=== PATIENT | female | born 1950 | race Caucasian/White ===

== ENCOUNTER 2024-07-02 09:07 | Inpatient (IN) | payer OTHER, BC ==
[2024-07-02 10:03] LABS: ABSOLUTE IMMATURE GRANULOCYTES 0.04 x10^3/uL (0.0-0.031); BASOPHILS # 0.02 x10^3/uL (0.01-0.08); EOSINOPHIL % 1.4 % (0.7-5.8); EOSINOPHILS # 0.11 x10^3/uL (0.04-0.36); HEMATOCRIT 32.5 % (34.1-44.9); HEMOGLOBIN 10.6 g/dL (11.2-15.7); MCHC 32.6 g/dl (32.2-35.5); MEAN CELL VOLUME 88.6 fl (79.4-94.8); MEAN PLT VOLUME 9.6 fl (9.4-12.3); MONOCYTE # 0.54 x10^3/uL (0.24-0.86); MONOCYTE % 6.8 % (4.7-12.5); PLATELET COUNT 213 x10^3/uL (182-369); RDW 13.2 % (12.4-16.6)
[2024-07-02 10:05] LABS: VENOUS BASE EXCESS -1.4 mmol/L (-2-2); VENOUS O2 SATURATION 65.5 % (70-80); VENOUS PCO2 37.1 mmHg (38-52); VENOUS PH 7.409 (7.310-7.410)
[2024-07-02 10:10] LABS: INR 0.99 (0.83-1.09); PROTHROMBIN TIME (PATIENT) 10.8 SEC (9.7-13.0)
[2024-07-02 10:34] LABS: POTASSIUM 4.2 mmol/L (3.5-5.1)
[2024-07-02 10:37] LABS: BLOOD UREA NITROGEN 11.8 mg/dL (7-18)
[2024-07-02 10:39] LABS: ALBUMIN 3.3 g/dl (3.4-5.0); CREATININE 0.8 mg/dL (0.55-1.3)
[2024-07-02 10:41] LABS: BILIRUBIN,TOTAL 0.9 mg/dL (0.2-1)
[2024-07-02 10:45] LABS: N-TERMINAL BNP 1625.1 pg/ml (5-125)
[2024-07-02] MEDS ORDERED: HEPARIN INFUSION - 500 ML IVPB SCH (11:00)
[2024-07-02] MEDS ORDERED: HEPARIN NA (PORCINE) 5,000 UNITS/ML 1ML VIAL ONE (11:33)
[2024-07-02] MEDS: HEPARIN NA (PORCINE) 5,000 UNITS/ML 1ML VIAL IVPUSH ONE (11:37)
[2024-07-02] MEDS ORDERED: HEPARIN NA (PORCINE) 5,000 UNITS/ML 1ML VIAL IVPUSH PRN ×2 (11:51)
[2024-07-02] MEDS: HEPARIN SOD,PORK IN 0.45% NACL 25,000 UNITS/500 ML INFUS.BAG IVPB SCH (12:41)
[2024-07-02] MEDS: ENOXAPARIN NA (PORCINE) 80 MG/0.8 ML DISP.SYRIN SQ ONE (14:58)
[2024-07-02] MEDS ORDERED: ENOXAPARIN NA (PORCINE) 60 MG/0.6 ML DISP.SYRIN SQ SCH ×2 (15:00→22:00)
[2024-07-02] MEDS: PANTOPRAZOLE 40 MG TABLET PO ONE (15:50)
[2024-07-02] MEDS ORDERED: PANTOPRAZOLE 40 MG TABLET PO ONE (15:51)
[2024-07-02] MEDS ORDERED: traMADol HCL 50 MG TABLET PO PRN (16:33)
[2024-07-02 17:26] VITALS: BMI 27.8
[2024-07-02] MEDS: metoPROLOL SUCCINATE 25 MG TAB.SR.24H (FP) PO SCH (19:12)
[2024-07-02] MEDS: CEFTRIAXONE 1 G/50 ML PREMIX 50 ML IVPB SCH (19:13)
[2024-07-02] MEDS: APIXABAN 5 MG TABLET PO SCH (19:13)
[2024-07-02] MEDS ORDERED: ATORVASTATIN CA 80 MG TABLET (FP) PO SCH (22:00)
[2024-07-02] MEDS: ATORVASTATIN CA 40 MG TABLET (FP) PO SCH (23:06)
[2024-07-03] MEDS: ACETAMINOPHEN 500 MG TABLET (FP) PO PRN (00:27)
[2024-07-03] MEDS: LEVOTHYROXINE NA 50 MCG TABLET (FP) PO SCH (06:13)
[2024-07-03 07:14] LABS: HEMOGLOBIN 9.7 g/dL (11.2-15.7); MCHC 32.3 g/dl (32.2-35.5); MEAN PLT VOLUME 10.3 fl (9.4-12.3); PLATELET COUNT 208 x10^3/uL (182-369); RDW 12.8 % (12.4-16.6)
[2024-07-03 07:39] LABS: POTASSIUM 4.1 mmol/L (3.5-5.1)
[2024-07-03 07:48] LABS: BLOOD UREA NITROGEN 12.8 mg/dL (7-18); CALCIUM 8.6 mg/dL (8.5-10.1); MAGNESIUM 1.8 mg/dL (1.8-2.4)
[2024-07-03 07:51] LABS: CREATININE 0.7 mg/dL (0.55-1.3)
[2024-07-03 07:52] LABS: PHOSPHOROUS 4.1 mg/dL (2.5-4.9)
[2024-07-03] MEDS: PANTOPRAZOLE 40 MG TABLET PO SCH (09:06)
[2024-07-03] MEDS: SENNOSIDES 8.6MG TABLET (FP) PO ONE (15:30)
[2024-07-03] MEDS: POLYETHYLENE GLYCOL (HEALTHYLAX) 3350 17 GM PACKET PO ONE (15:31)
[2024-07-03] MEDS: SENNOSIDES 8.6MG TABLET (FP) PO SCH (21:10)
[2024-07-03] MEDS: POLYETHYLENE GLYCOL (HEALTHYLAX) 3350 17 GM PACKET PO SCH (21:11)
[2024-07-03] MEDS: ATORVASTATIN CA 40 MG TABLET (FP) PO SCH (21:11)
[2024-07-03] MEDS ORDERED: SENNOSIDES 8.6MG TABLET (FP) PO SCH (22:00)
[2024-07-04 02:48] VITALS: RESP 18
[2024-07-04 07:07] VITALS: TEMP 98.8
[2024-07-04 08:08] LABS: POTASSIUM 4.5 mmol/L (3.5-5.1)
[2024-07-04 08:30] LABS: CALCIUM 8.5 mg/dL (8.5-10.1)
[2024-07-04 08:31] LABS: ALBUMIN 3.3 g/dl (3.4-5.0); BLOOD UREA NITROGEN 8.3 mg/dL (7-18)
[2024-07-04 08:34] LABS: CREATININE 0.7 mg/dL (0.55-1.3)
[2024-07-04 08:35] LABS: TOT PROT 6.6 g/dl (6.4-8.2)
[2024-07-04 09:10] VITALS: BP 142/77; PULSE 103
[2024-07-04 09:48] LABS: HEMATOCRIT 30.7 % (34.1-44.9); HEMOGLOBIN 9.9 g/dL (11.2-15.7); MCHC 32.2 g/dl (32.2-35.5); MEAN CELL VOLUME 88.5 fl (79.4-94.8); MEAN PLT VOLUME 10.3 fl (9.4-12.3); PLATELET COUNT 228 x10^3/uL (182-369)
[2024-07-09] MEDS ORDERED: APIXABAN 5 MG TABLET PO SCH (10:00)
== END 2024-07-04 12:28 | disposition home or self-care (01) | DRG 314 ==
LOC: JER 09:07 → JERBED 13:20 → J4W 16:43
PROVIDERS: ADMIT Internal Medicine; ATTEND Internal Medicine
DX: I97.89 Other postprocedural complications and disorders of the circulatory system, not elsewhere classified (principal); I26.99 Other pulmonary embolism without acute cor pulmonale; I24.89 Other forms of acute ischemic heart disease; I50.30 Unspecified diastolic (congestive) heart failure; Y83.8 Other surgical procedures as the cause of abnormal reaction of the patient, or of later complication, without mention of misadventure at the time of the procedure; E03.9 Hypothyroidism, unspecified; K76.9 Liver disease, unspecified; K21.9 Gastro-esophageal reflux disease without esophagitis; M81.0 Age-related osteoporosis without current pathological fracture; E78.5 Hyperlipidemia, unspecified; R00.0 Tachycardia, unspecified; K44.9 Diaphragmatic hernia without obstruction or gangrene
CPT/HCPCS: 0241U-QW; 36415; 71045-TC-FY; 71275-TC; 74177-TC; 80048; 80053; 80061; 82803; 83036; 83690; 83735; 83880; 84100; 84436; 84439; 84443; 84484; 85025; 85027; 85610; 85730; 86850; 86900; 86901; 87040; 87086; 93005; 93010; 93306-TC; 93970-TC; 94761; 97116-GP; 97163-GP; 99291; J1644; Q9967

== ENCOUNTER 2024-07-29 10:14 | Inpatient (IN) | payer OTHER, BC ==
[2024-07-29] MEDS ORDERED: ACETAMINOPHEN 325 MG TABLET (FP) ONE (10:47)
[2024-07-29 11:11] LABS: ABSOLUTE IMMATURE GRANULOCYTES 0.02 x10^3/uL (0.0-0.031); BASOPHILS # 0.04 x10^3/uL (0.01-0.08); EOSINOPHIL % 7.8 % (0.7-5.8); HEMATOCRIT 32.1 % (34.1-44.9); HEMOGLOBIN 10.6 g/dL (11.2-15.7); MEAN PLT VOLUME 10.8 fl (9.4-12.3); MONOCYTE # 0.42 x10^3/uL (0.24-0.86); MONOCYTE % 6.5 % (4.7-12.5); PLATELET COUNT 152 x10^3/uL (182-369); RDW 13.2 % (12.4-16.6)
[2024-07-29] MEDS: ACETAMINOPHEN 325 MG TABLET (FP) PO ONE ×2 (11:15→18:22)
[2024-07-29 11:19] LABS: INR 1.61 (0.83-1.09); PROTHROMBIN TIME (PATIENT) 17.6 SEC (9.7-13.0)
[2024-07-29 11:22] LABS: ACTIVATED PTT 39.6 SECONDS (25.2-36.5)
[2024-07-29 11:28] LABS: EPI CELLS 8 /uL (0-25.1); HYALINE CASTS 0 /uL (0-3.1); PH,URINE 6.5 (5.0-8.0); URINE APPEARANCE CLEAR; URINE BACTERIA 38 /uL (0-1359); URINE BILIRUBIN 1+ (NEGATIVE); URINE COLOR DK YELLOW; URINE GLUCOSE (UA) NEGATIVE (NEGATIVE); URINE KETONE NEGATIVE (NEGATIVE); URINE LEUK ESTERASE 2+ (NEGATIVE); URINE NITRITE NEGATIVE (NEGATIVE); URINE PROTEIN TRACE (NEGATIVE); URINE RBC 29 /uL (0-23.9); URINE WBC 138 /uL (0-25.8)
[2024-07-29 11:33] LABS: POTASSIUM 4.4 mmol/L (3.5-5.1)
[2024-07-29 11:36] LABS: ALBUMIN 3.2 g/dl (3.4-5.0); BLOOD UREA NITROGEN 10.6 mg/dL (7-18); CALCIUM 8.9 mg/dL (8.5-10.1); MAGNESIUM 1.7 mg/dL (1.8-2.4)
[2024-07-29 11:40] LABS: BILIRUBIN,TOTAL 3.1 mg/dL (0.2-1); CREATININE 0.8 mg/dL (0.55-1.3)
[2024-07-29 11:42] LABS: TOT PROT 6.7 g/dl (6.4-8.2)
[2024-07-29] MEDS ORDERED: CEFTRIAXONE 1 G/50 ML PREMIX 50 ML IVPB ONE (13:27)
[2024-07-29] MEDS: CEFTRIAXONE 1 GM in DEXTROSE 5%-WATER - 50 ML IVPB ONE (13:30)
[2024-07-29 15:17] VITALS: BMI 25.6
[2024-07-29] MEDS: DEXTROSE 5%-NORMAL SALINE 1,000 ML IV SCH (15:31)
[2024-07-29] MEDS: APIXABAN 5 MG TABLET PO SCH (21:37)
[2024-07-29] MEDS: BUDESONIDE/FORMETEROL FUMARATE 80/4.5 mcg INHALER IH SCH (21:37)
[2024-07-29] MEDS: metoPROLOL SUCCINATE 25 MG TAB.SR.24H (FP) PO ONE (22:56)
[2024-07-30] MEDS: ACETAMINOPHEN 325 MG TABLET (FP) PO ONE (01:50)
[2024-07-30] MEDS: LEVOTHYROXINE NA 50 MCG TABLET (FP) PO SCH (06:20)
[2024-07-30 08:37] LABS: ABSOLUTE IMMATURE GRANULOCYTES 0.02 x10^3/uL (0.0-0.031); BASOPHILS # 0.03 x10^3/uL (0.01-0.08); EOSINOPHIL % 15.2 % (0.7-5.8); EOSINOPHILS # 0.68 x10^3/uL (0.04-0.36); HEMATOCRIT 29.3 % (34.1-44.9); HEMOGLOBIN 9.5 g/dL (11.2-15.7); MCHC 32.4 g/dl (32.2-35.5); MEAN CELL VOLUME 88.5 fl (79.4-94.8); MEAN PLT VOLUME 11.2 fl (9.4-12.3); MONOCYTE # 0.52 x10^3/uL (0.24-0.86); MONOCYTE % 11.6 % (4.7-12.5); PLATELET COUNT 155 x10^3/uL (182-369); RDW 13.2 % (12.4-16.6)
[2024-07-30 08:38] LABS: INR 1.36 (0.83-1.09)
[2024-07-30] MEDS ORDERED: INDOMETHACIN 50 MG RECTAL SUPPOSITORY PR ONE (08:46)
[2024-07-30 08:51] LABS: POTASSIUM 4.1 mmol/L (3.5-5.1)
[2024-07-30 08:56] LABS: ALBUMIN 2.9 g/dl (3.4-5.0); CALCIUM 8.7 mg/dL (8.5-10.1); PHOSPHOROUS 2.1 mg/dL (2.5-4.9)
[2024-07-30 08:57] LABS: BILIRUBIN,TOTAL 2.4 mg/dL (0.2-1); BLOOD UREA NITROGEN 9.6 mg/dL (7-18)
[2024-07-30 09:01] LABS: CREATININE 0.7 mg/dL (0.55-1.3)
[2024-07-30] MEDS ORDERED: metoPROLOL SUCCINATE 25 MG TAB.SR.24H (FP) PO SCH (10:00)
[2024-07-30] MEDS ORDERED: PIPERACILLIN/TAZOB 3.375 GM 3.375 GM in DEXTROSE 5%-WATER - 50 ML IVPB ONE (10:00)
[2024-07-30] MEDS: busPIRone HCL 10 MG TABLET (FP) PO SCH (10:27)
[2024-07-30] MEDS: CEFTRIAXONE 1 G/50 ML PREMIX 50 ML IVPB SCH (10:27)
[2024-07-30] MEDS: NAPH,MB-DB/K PH,MBDB POWDER PACKET PO SCH (12:29)
[2024-07-30 13:11] LABS: BILIRUBIN,DIRECT 1.7 mg/dL (0.0-0.2)
[2024-07-30] MEDS ORDERED: HEPARIN NA (PORCINE) 5,000 UNITS/ML 1ML VIAL IVPUSH PRN ×2 (13:37)
[2024-07-30] MEDS: HEPARIN - 25,000 UNIT in SODIUM CHLORIDE 495 ML IV SCH (15:06)
[2024-07-30] MEDS: metoPROLOL SUCCINATE 25 MG TAB.SR.24H (FP) PO SCH (21:33)
[2024-07-30] MEDS: ATORVASTATIN CA 80 MG TABLET (FP) PO SCH (21:33)
[2024-07-30] MEDS ORDERED: APIXABAN 5 MG TABLET PO SCH (22:00)
[2024-07-30] MEDS: IBUPROFEN 600 MG TABLET (FP) PO ONE (22:44)
[2024-07-30 23:12] LABS: INR 1.17 (0.83-1.09); PROTHROMBIN TIME (PATIENT) 12.9 SEC (9.7-13.0)
[2024-07-30] MEDS: ACETAMINOPHEN/CAFFEINE/BUTALBITAL 1 TAB PO ONE (23:15)
[2024-07-30 23:33] LABS: ACTIVATED PTT 127.6 SECONDS (25.2-36.5)
[2024-07-31 09:37] LABS: ABSOLUTE IMMATURE GRANULOCYTES 0.02 x10^3/uL (0.0-0.031); BASOPHILS # 0.06 x10^3/uL (0.01-0.08); EOSINOPHIL % 12.4 % (0.7-5.8); EOSINOPHILS # 0.76 x10^3/uL (0.04-0.36); HEMOGLOBIN 9.6 g/dL (11.2-15.7); MCHC 33.1 g/dl (32.2-35.5); MEAN CELL VOLUME 86.6 fl (79.4-94.8); MEAN PLT VOLUME 11.8 fl (9.4-12.3); MONOCYTE % 9.8 % (4.7-12.5); PLATELET COUNT 192 x10^3/uL (182-369); RDW 13.4 % (12.4-16.6)
[2024-07-31 09:48] LABS: INR 1.14 (0.83-1.09); PROTHROMBIN TIME (PATIENT) 12.4 SEC (9.7-13.0)
[2024-07-31 10:02] LABS: POTASSIUM 4.2 mmol/L (3.5-5.1)
[2024-07-31] MEDS: PANTOPRAZOLE 40 MG TABLET PO SCH (10:12)
[2024-07-31 10:18] LABS: BLOOD UREA NITROGEN 8.6 mg/dL (7-18); MAGNESIUM 2.1 mg/dL (1.8-2.4)
[2024-07-31 10:23] LABS: ACTIVATED PTT 134.9 SECONDS (25.2-36.5)
[2024-07-31 10:24] LABS: BILIRUBIN,TOTAL 1.3 mg/dL (0.2-1); CREATININE 0.6 mg/dL (0.55-1.3); PHOSPHOROUS 2.8 mg/dL (2.5-4.9)
[2024-07-31 10:26] LABS: TOT PROT 6.2 g/dl (6.4-8.2)
[2024-07-31] MEDS ORDERED: MIDAZOLAM HCL 2 MG/2 ML SINGLE DOSE VIAL ONE (12:07)
[2024-07-31] MEDS ORDERED: ONDANSETRON 4 MG/2 ML VIAL ONE (12:07)
[2024-07-31] MEDS: PIPERACILLIN/TAZOB 3.375 GM 3.375 GM in DEXTROSE 5%-WATER - 50 ML IVPB ONE (12:34)
[2024-07-31] MEDS: INDOMETHACIN 50 MG RECTAL SUPPOSITORY PR ONE (12:34)
[2024-07-31] MEDS ORDERED: ONDANSETRON 4 MG/2 ML VIAL IVPUSH PRN (13:34)
[2024-07-31] MEDS ORDERED: KETOROLAC TROMETHAMINE 15 MG/ML VIAL IVPUSH PRN (13:35)
[2024-07-31 13:38] VITALS: RESP 18
[2024-07-31] MEDS: LACTATED RINGERS SOLUTION 1,000 ML IV SCH (17:47)
[2024-07-31] MEDS: metoPROLOL SUCCINATE 25 MG TAB.SR.24H (FP) PO SCH (21:08)
[2024-07-31] MEDS: APIXABAN 5 MG TABLET PO SCH (21:08)
[2024-08-01 08:37] VITALS: BP 123/61; PULSE 83; TEMP 98.1
[2024-08-01 08:37] LABS: ABSOLUTE IMMATURE GRANULOCYTES 0.05 x10^3/uL (0.0-0.031); BASOPHILS # 0.03 x10^3/uL (0.01-0.08); EOSINOPHIL % 3.4 % (0.7-5.8); EOSINOPHILS # 0.29 x10^3/uL (0.04-0.36); HEMATOCRIT 31.2 % (34.1-44.9); MCHC 32.1 g/dl (32.2-35.5); MEAN CELL VOLUME 86.4 fl (79.4-94.8); MEAN PLT VOLUME 10.9 fl (9.4-12.3); MONOCYTE # 0.67 x10^3/uL (0.24-0.86); MONOCYTE % 7.8 % (4.7-12.5); PLATELET COUNT 273 x10^3/uL (182-369); RDW 13.6 % (12.4-16.6)
[2024-08-01 08:39] LABS: HEMATOCRIT 30.3 % (34.1-44.9); MEAN CELL VOLUME 86.1 fl (79.4-94.8); MEAN PLT VOLUME 10.7 fl (9.4-12.3); PLATELET COUNT 272 x10^3/uL (182-369); RDW 13.5 % (12.4-16.6)
[2024-08-01 08:59] LABS: POTASSIUM 4.1 mmol/L (3.5-5.1)
[2024-08-01 09:12] LABS: ALBUMIN 3.2 g/dl (3.4-5.0); BLOOD UREA NITROGEN 11.6 mg/dL (7-18); CALCIUM 9.4 mg/dL (8.5-10.1); MAGNESIUM 2.3 mg/dL (1.8-2.4)
[2024-08-01 09:15] LABS: CREATININE 0.7 mg/dL (0.55-1.3)
[2024-08-01 09:16] LABS: PHOSPHOROUS 2.6 mg/dL (2.5-4.9)
[2024-08-01 09:17] LABS: BILIRUBIN,TOTAL 1.2 mg/dL (0.2-1); TOT PROT 6.9 g/dl (6.4-8.2)
== END 2024-08-01 11:26 | disposition home or self-care (01) | DRG 445 ==
LOC: JER 10:14 → JERBED 13:04 → J6S 14:54
PROVIDERS: ADMIT Student in an Organized Health Care Education/Training Program; ATTEND Internal Medicine
PROC: 0DB68ZX Excision of Stomach, Via Natural or Artificial Opening Endoscopic, Diagnostic (ICD-10-PCS; principal; 2024-07-31 11:00)
DX: K82.8 Other specified diseases of gallbladder (principal); K83.09 Other cholangitis; E03.9 Hypothyroidism, unspecified; K21.9 Gastro-esophageal reflux disease without esophagitis; M81.0 Age-related osteoporosis without current pathological fracture; K29.70 Gastritis, unspecified, without bleeding; K82.4 Cholesterolosis of gallbladder
CPT/HCPCS: 0241U-QW; 36415; 71045-TC-FY; 74178-TC; 76705-TC; 80053; 80061; 81003; 82248; 83690; 83735; 84100; 85025; 85027; 85610; 85730; 86850; 86900; 86901; 87086; 88305-TC; 88342-TC; 93005; 93010; 99285-25; J1644; Q9967